=== PATIENT | male | born 1970 | race Caucasian/White ===

== ENCOUNTER 2022-03-17 07:27 | Emergency (ER) | payer MEDICARE, MEDICAID ==
[~2022-03-17] VITALS: Ht 182.9 cm; Wt 96.4 kg
[~2022-03-17 07:27] MED LIST: APIX5TAB3 PO; HYDR-3972 PO; METO-395 PO
[2022-03-17 07:33] VITALS: BP 124/81
== END 2022-03-17 08:39 | disposition left against medical advice (07) ==
LOC: ER 07:28
DX: K62.89 Other specified diseases of anus and rectum (principal); Z53.21 Procedure and treatment not carried out due to patient leaving prior to being seen by health care provider